=== PATIENT | female | born 1950 | race Caucasian/White ===

== ENCOUNTER 2021-08-12 11:34 | Emergency (ER) | payer BC ==
[~2021-08-12] VITALS: Ht 167.6 cm; Wt 63.5 kg
--- NOTE | 2021-08-12 11:57 | NUR ---
TO ER BED 4, C/O FOREHEAD HEMATOMA S/P TRIP AND FALL 30MINS AGO. NO LOC ENDORSED, DENIES PAIN, AAOX3, BREATHING EVEN AND NON LABORED, AWAITING MD ESQUIVEL
--- NOTE | 2021-08-12 13:39 | NUR ---
BACK FROM CT
[2021-08-12] MEDS ORDERED: TDAP [DIPH/PERTUSSIS/TET] 0.5 ML VIAL IM ONE (13:51)
[2021-08-12] MEDS: TDAP [DIPH/PERTUSSIS/TET] 0.5 ML VIAL IM ONE (13:53)
--- NOTE | 2021-08-12 14:44 | NUR ---
Patient discharged to home in stable condition. Written and verbal after care instructions given. Patient verbalizes understanding of instruction.
[2021-08-12 14:46] VITALS: BP 137/99
== END 2021-08-12 14:47 | disposition home or self-care (01) ==
LOC: ER 11:46
DX: S09.90XA Unspecified injury of head, initial encounter (principal); E03.9 Hypothyroidism, unspecified; Z88.0 Allergy status to penicillin; Z88.2 Allergy status to sulfonamides; W01.198A Fall on same level from slipping, tripping and stumbling with subsequent striking against other object, initial encounter; Y93.01 Activity, walking, marching and hiking; Y92.89 Other specified places as the place of occurrence of the external cause; Y99.8 Other external cause status
CPT/HCPCS: 70450-TC; 90715